=== PATIENT | female | born 1940 | race American Indian/Alaskan Native ===

== ENCOUNTER 2019-03-03 14:33 | Observation (INO) | payer MEDICARE ==
--- NOTE | 2019-03-03 14:59 | Emergency Department Report ---
ED Altered Mental Status HPI - General Stated Complaint: AMS Time Seen by Provider: 03/03/19 14:46 Source: patient, EMS Mode of arrival: Stretcher Limitations: No Limitations - History of Present Illness Initial Comments: 78-year-old female brought in by EMS with a past medical history of hypertension and elevated cholesterol with alteration in mental status. Daughter is also at the bedside. Apparently patient was eating and then she stopped responding to her daughter verbally. Daughter states she was not following commands and was unresponsive. Daughter thinks she might have had some right facial droop. Upon EMS arrival patient still was not speaking. Once they got her into the ambulance she started to speak and follow commands again. EMS reports Accu-Chek of 113 and the negative stroke screening exam. Upon arrival to the hospital daughter confirms that patient is at her baseline mental status. Patient complains only of mild lower back pain. She is alert and oriented 3. She is following commands. She does take an aspirin daily. PMD is Dr. Chou as sociated with Dr. Tanya Almeida's office - Related Data Allergies Allergy/AdvReac Type Severity Reaction Status Date / Time No Known Allergies Allergy Unverified 03/03/19 15:09 ED Review of Systems ROS: Stated complaint: AMS Other details as noted in HPI Comment: All other systems reviewed and negative ED Physical Exam - Other Other exam information: Gen.: No acute distress Head: Atraumatic Eyes: Normal appearance, extraocular movements intact, pupils equal reactive to light ENT: Moist mucous membranes Neck: Normal appearance, no posterior midline tenderness, no meningismus Chest: Clear to auscultation bilaterally Cardiovascular: Regular rate and rhythm Abdomen: Normal appearance, soft, nontender, no rebound or guarding, normal bowel sounds Back: Normal appearance, nontender Extremity: Full range of motion, normal appearance Neuro: Alert oriented 3, clear speech, no focal motor or sensory deficit Psychiatric: Appropriate Skin: No rash - Assessment Assessment Interval: Baseline - Level of Consciousness 1a. Level of Consciousness: alert/keenly responsive - LOC Questions 1b. LOC Questions: answers both correctly - LOC Command 1c. LOC Commands: performs tasks correctly - Best Gaze 2. Best Gaze: normal - Visual 3. Visual: no visual loss - Facial Palsy 4. Facial Palsy: normal symmetrical movement - Motor Arm 5a. Motor Arm Left: no drift 5b. Motor Arm Right: no drift - Motor Leg 6a. Motor Leg Left: no drift 6b. Motor Leg Right: no drift - Limb Ataxia 7. Limb Ataxia: absent - Sensory 8. Sensory: normal - Best Language 9. Best Language: no aphasia - Dysarthria 10. Dysarthria: normal - Extinction and Inattention 11. Extinction/Inattention: no abnormality - Scoring Total Score: 0 Stroke Severity: No Stroke Symptoms ED Course Vital Signs 03/03/19 03/03/19 15:01 15:07 Temperature 98.2 F Pulse Rate 61 60 Respiratory 16 16 Rate Blood Pressure 129/60 [Left] O2 Sat by Pulse 100 98 Oximetry - Lab Data Result diagrams: 03/03/19 15:07 03/03/19 15:07 Lab Results 03/03/19 03/03/19 03/03/19 Range/Units 15:07 15:07 15:07 WBC 4.0 L (4.5-11.0) K/mm3 RBC 3.28 L (3.65-5.03) M/mm3 Hgb 11.3 (10.1-14.3) gm/dl Hct 32.9 (30.3-42.9) % MCV 100 H (79-97) fl MCH 34 H (28-32) pg MCHC 34 (30-34) % RDW 13.2 (13.2-15.2) % Plt Count 213 (140-440) K/mm3 Lymph % (Auto) 24.1 (13.4-35.0) % [place] % (Auto) 7.7 H (0.0-7.3) % Eos % (Auto) 0.2 (0.0-4.3) % Baso % (Auto) 0.5 (0.0-1.8) % Lymph # 1.0 L (1.2-5.4) K/mm3 [place] # 0.3 (0.0-0.8) K/mm3 Eos # 0.0 (0.0-0.4) K/mm3 Baso # 0.0 (0.0-0.1) K/mm3 Seg Neutrophils % 67.5 (40.0-70.0) % Seg Neutrophils # 2.7 (1.8-7.7) K/mm3 PT 14.3 (12.2-14.9) Sec. INR 1.14 H (0.87-1.13) APTT 23.5 L (24.2-36.6) Sec. Sodium 141 (137-145) mmol/L Potassium 3.8 (3.6-5.0) mmol/L Chloride 105.1 (98-107) mmol/L Carbon Dioxide 21 L (22-30) mmol/L Anion Gap 19 mmol/L BUN 21 H (7-17) mg/dL Creatinine 1.2 (0.7-1.2) mg/dL Estimated GFR 52 ml/min BUN/Creatinine Ratio 18 % Glucose 123 H (65-100) mg/dL Calcium 9.5 (8.4-10.2) mg/dL Magnesium (1.7-2.3) mg/dL Total Bilirubin 0.80 (0.1-1.2) mg/dL AST 14 (5-40) units/L ALT 7 (7-56) units/L Alkaline Phosphatase 92 (35-129) units/L Total Protein 6.8 (6.3-8.2) g/dL Albumin 3.8 L (3.9-5) g/dL Albumin/Globulin Ratio 1.3 % TSH (0.270-4.200) mlU/mL Free T4 (0.76-1.46) ng/dL Plasma/Serum Alcohol (0-0.07) % 03/03/19 03/03/19 03/03/19 Range/Units 15:07 15:07 15:07 WBC (4.5-11.0) K/mm3 RBC (3.65-5.03) M/mm3 Hgb (10.1-14.3) gm/dl Hct (30.3-42.9) % MCV (79-97) fl MCH (28-32) pg MCHC (30-34) % RDW (13.2-15.2) % Plt Count (140-440) K/mm3 Lymph % (Auto) (13.4-35.0) % [place] % (Auto) (0.0-7.3) % Eos % (Auto) (0.0-4.3) % Baso % (Auto) (0.0-1.8) % Lymph # (1.2-5.4) K/mm3 [place] # (0.0-0.8) K/mm3 Eos # (0.0-0.4) K/mm3 Baso # (0.0-0.1) K/mm3 Seg Neutrophils % (40.0-70.0) % Seg Neutrophils # (1.8-7.7) K/mm3 PT (12.2-14.9) Sec. INR (0.87-1.13) APTT (24.2-36.6) Sec. Sodium (137-145) mmol/L Potassium (3.6-5.0) mmol/L Chloride (98-107) mmol/L Carbon Dioxide (22-30) mmol/L Anion Gap mmol/L BUN (7-17) mg/dL Creatinine (0.7-1.2) mg/dL Estimated GFR ml/min BUN/Creatinine Ratio % Glucose (65-100) mg/dL Calcium (8.4-10.2) mg/dL Magnesium 1.90 (1.7-2.3) mg/dL Total Bilirubin (0.1-1.2) mg/dL AST (5-40) units/L ALT (7-56) units/L Alkaline Phosphatase (35-129) units/L Total Protein (6.3-8.2) g/dL Albumin (3.9-5) g/dL Albumin/Globulin Ratio % TSH 1.150 (0.270-4.200) mlU/mL Free T4 1.61 H (0.76-1.46) ng/dL Plasma/Serum Alcohol < 0.01 (0-0.07) % - EKG Data -: EKG Interpreted by Pr EKG shows normal: sinus rhythm, axis (qrs -13), ST-T waves (no stemi) Rate: normal (60) When compared to previous EKG there are: previous EKG unavailable - Radiology Data Radiology results: report reviewed CT HEAD WITHOUT CONTRAST HISTORY: Altered Mental Status. TECHNIQUE: Axial collins ging performed from the skull apex through the skull base without the use of contrast. All CT scans at this location are performed using CT dose reduction for ALARA by means of automated exposure control. COMPARISON: None FINDINGS: Parenchyma: No acute intracranial hemorrhage or parenchymal abnormality.. Mild hypoattenuation throughout the white matter is noted and consistent with chronic microvascular ischemic disease. Ventricles: There is mild diffuse brain atrophy with commensurate ventricular enlargement which is likely age appropriate. Soft tissues: Soft tissues including the orbits appear normal. Bones: No acute osseous abnormality. Sinuses: Sinuses and mastoid air cells are clear. IMP RESSION: No acute abnormality. - Medical Decision Making plan to admit pt to hospital for transient alteration in mental status at baseline upon arrival ed workup did not identify cause thyroid panel results and urine collection pending at dispo asa ordered - Differential Diagnosis TIA, encephalopathy, arrhythmia, seizure Critical Care Time: No Critical care attestation.: If time is entered above; I have spent that time in minutes in the direct care of this critically ill patient, excluding procedure time. ED Disposition Clinical Impression: Transient alteration of awareness Disposition: DC-09 OP ADMIT IP TO THIS HOSP Is pt being admited?: Yes Does the pt Need Aspirin: Yes Condition: Stable Referrals: JADEN CHOU PA [Primary Care Provider] - 3-5 Days Time of Disposition: 16:02 (Dr pretty/hosp)
[2019-03-03 15:30] LABS: Basophils % (Auto) 0.5 % (0.0-1.8); Eosinophils % (Auto) 0.2 % (0.0-4.3); Hematocrit 32.9 % (30.3-42.9); Hemoglobin 11.3 gm/dl (10.1-14.3); Lymphocytes % (Auto) 24.1 % (13.4-35.0); Mean Corpuscular HGB Conc 34 % (30-34); Mean Corpuscular Volume 100 fl (79-97); Monocytes # (Auto) 0.3 K/mm3 (0.0-0.8); Monocytes % (Auto) 7.7 % (0.0-7.3); Platelet Count 213 K/mm3 (140-440); Red Blood Count 3.28 M/mm3 (3.65-5.03); Red Cell Distribution Width 13.2 % (13.2-15.2)
--- NOTE | 2019-03-03 15:39 | Cat Scan Report ---
CT HEAD WITHOUT CONTRAST HISTORY: Altered Mental Status. TECHNIQUE: Axial imaging performed from the skull apex through the skull base without the use of con trast. All CT scans at this location are performed using CT dose reduction for ALARA by means of aut omated exposure control. COMPARISON: None FINDINGS: Parenchyma: No acute intracranial hemorrhage or parenchymal abnormality.. Mild hypoattenuation thro ughout the white matter is noted and consistent with chronic microvascular ischemic disease. Ventricles: There is mild diffuse brain atrophy with commensurate ventricular enlargement which is l ikely age appropriate. Soft tissues: Soft tissues including the orbits appear normal. Bones: No acute osseous abnormality. Sinuses: Sinuses and mastoid air cells are clear. IMPRESSION: No acute abnormality. Signer Name: Kem Villegas Jr, MD Signed: 03/03/2019 3:35 PM Workstation Name: [id number]
[2019-03-03 15:45] LABS: INR 1.14 (0.87-1.13)
[2019-03-03 15:46] LABS: Partial Thromboplastin Time 23.5 Sec. (24.2-36.6)
[2019-03-03] MEDS ORDERED: ASPIRIN PO ONE (15:51)
[2019-03-03 15:58] LABS: Albumin 3.8 g/dL (3.9-5); Calcium 9.5 mg/dL (8.4-10.2)
[2019-03-03 16:05] LABS: Free T4 (Free Thyroxine) 1.61 ng/dL (0.76-1.46)
[2019-03-03] MEDS ORDERED: REGLAN PO PRN (16:05)
[2019-03-03] MEDS ORDERED: SODIUM CHLORIDE FLUSH SYRINGE 10 ML IV PRN (16:05)
[2019-03-03] MEDS ORDERED: PHENERGAN PR PRN (16:05)
[2019-03-03] MEDS ORDERED: MILK OF MAGNESIA PO PRN (16:05)
[2019-03-03] MEDS ORDERED: ZOFRAN IV PRN (16:05)
[2019-03-03] MEDS ORDERED: DULCOLAX PR PRN (16:05)
[2019-03-03] MEDS ORDERED: TYLENOL PO PRN (16:05)
--- NOTE | 2019-03-03 16:05 | History and Physical Report ---
History of Present Illness Chief complaint: She could not talk History of present illness: 78 YO Female with HTN, HLD, Dementia presents to ED for evaluation. Pt is confused and provides limited history. Pt daughter is at bedside and provides history. As per daughter, the patient was in her usual state of health and was eating her meal. Pt daughter reports that the patient stopped speaking, and experienced right sided facial droop and was unable to follow commands. EMS was notified, and upon arrival the patient was found to have a neurologic deficit. A code stroke was called and the patient was transported to [facility]. Pt seen and evaluated in ED and was found to have symptoms consistent with CVA. Pt is outside therapeutic window for TPA. Pt admitted to telemetry and initiated on CVA protocol. No reports of fever, chills, CP, Palpitations, NVD, Trauma, BRBPR, Unintentional weight loss, night sweats, or recent ill contacts. No prior admission for review. All listed medication reconciled at time of admission. Past History Past Medical History: hypertension, hyperlipidemia, other (Dementia) Past Surgical History: No surgical history, Other (Reviewed) Social history: single. denies: smoking, alcohol abuse, prescription drug abuse Family history: hypertension Medications and Allergies Allergies Allergy/AdvReac Type Severity Reaction Status Date / Time No Known Allergies Allergy Unverified 03/03/19 15:09 Review of Systems ROS unobtainable: due to mental status Exam - Constitutional Vitals: Temp Pulse Resp BP Pulse Ox 98.2 F 60 16 129/60 98 03/03/19 15:01 03/03/19 15:07 03/03/19 15:07 03/03/19 15:07 03/03/19 15:07 General appearance: Present: no acute distress, well-nourished - EENT Eyes: Present: PERRL ENT: hearing intact, clear oral mucosa - Neck Neck: Present: supple, normal ROM - Respiratory Respiratory effort: normal Respiratory: bilateral: CTA - Cardiovascular Heart Sounds: Present: S1 & S2. Absent: rub, click - Extremities Extremities: pulses symmetrical, No edema Peripheral Pulses: within normal limits - Abdominal General gastrointestinal: Present: soft, non-tender, non-distended, normal bowel sounds Female genitourinary: Present: normal - Integumentary Integumentary: Present: clear, warm, dry - Musculoskeletal Musculoskeletal: generalized weakness - Psychiatric Psychiatric: no appropriate mood/affect, no intact judgment & insight, no memory intact - Neurologic Neurologic: CNII-XII intact, no focal deficits, moves all extremities, no gait normal Results - Labs CBC & Chem 7: 03/03/19 15:07 03/03/19 15:07 Labs: Abnormal lab results 03/03/19 03/03/19 03/03/19 Range/Units 15:07 15:07 15:07 WBC 4.0 L (4.5-11.0) K/mm3 RBC 3.28 L (3.65-5.03) M/mm3 MCV 100 H (79-97) fl MCH 34 H (28-32) pg [place] % (Auto) 7.7 H (0.0-7.3) % Lymph # 1.0 L (1.2-5.4) K/mm3 INR 1.14 H (0.87-1.13) APTT 23.5 L (24.2-36.6) Sec. Carbon Dioxide 21 L (22-30) mmol/L BUN 21 H (7-17) mg/dL Glucose 123 H (65-100) mg/dL Albumin 3.8 L (3.9-5) g/dL Assessment and Plan - Patient Problems (1) CVA (cerebral vascular accident) Current Visit: Yes Status: Acute Qualifiers: Laterality of affected vessel: unspecified Plan to address problem: CVA Protocol: Admit to Telemetry, CT Head, Echo, Carotid doppler, antiplatelet therapy, PT/OT/Speech Therapy, Lipid panel, Statin therapy, (2) HTN (hypertension) Current Visit: Yes Status: Acute Qualifiers: Hypertension type: essential hypertension Qualified Code(s): I10 - Essential (primary) hypertension Plan to address problem: Monitor BP q shift, supportive care. (3) HLD (hyperlipidemia) Current Visit: Yes Status: Acute Qualifiers: Hyperlipidemia type: mixed hyperlipidemia Qualified Code(s): E78.2 - Mixed hyperlipidemia Plan to address problem: Statin therapy, (4) Advance care planning Current Visit: Yes Status: Acute Plan to address problem: 30 minutes dedicated to care planning. Discussed Prognosis, Dementia progression, End of life care. (5) DVT prophylaxis Current Visit: Yes Status: Acute Plan to address problem: SCD to BLE while in bed, supportive care.
--- NOTE | 2019-03-03 17:33 | Vascular Lab Report ---
Duplex carotid sonography with spectral analysis Indication: stroke Mild carotid atherosclerotic changes are seen. Tortuous vessels are noted bilaterally. In the right internal carotid artery no significant velocity elevations are seen to suggest a hemodyn amically-significant stenosis. Peak systolic velocity of the right ICA is 108 cm/s. In the left internal carotid artery no significant velocity elevations are seen to suggest a hemodyna mically-significant stenosis. Peak systolic velocity of the left ICA is 84 cm/s. Right ICA/CCA ratio: 1.54 Left ICA/CCA ratio: 1.17 Vertebral flow is antegrade bilaterally. Impression: No evidence of hemodynamically-significant stenosis by NASCET-type criteria. . Signer Name: Regulo Mckenzie MD Signed: 03/03/2019 5:29 PM Workstation Name: [id number]
[2019-03-03] MEDS ORDERED: ASPIRIN ONE (17:54)
--- NOTE | 2019-03-03 18:40 | Consultation ---
History of Present Illness Consult date: 03/03/19 Chief complaint: right facial droop, unresponsive History of present illness: This is an 78 YO F who presented to the ED with a spell where she was slumped over and not responding. No recent illness. Had been on donepezil which she was not tolerating but has been off for 3 weeks. Thought to have a right facial droop. All symptoms now resolved. Past History Past Medical History: hypertension, hyperlipidemia, other (Dementia) Past Surgical History: No surgical history, Other (Reviewed) Social history: single. denies: smoking, alcohol abuse, prescription drug abuse Family history: hypertension Medications and Allergies Allergies Allergy/AdvReac Type Severity Reaction Status Date / Time No Known Allergies Allergy Unverified 03/03/19 15:09 Active Meds: Active Medications Acetaminophen (Tylenol) 650 mg PO Q4H PRN PRN Reason: Pain, Mild (1-3) Aspirin (Aspirin) 325 mg PO QDAY APRIL Atorvastatin Calcium (Lipitor) 40 mg PO QHS APRIL Bisacodyl (Dulcolax) 10 mg ND QDAY PRN PRN Reason: Constipation Magnesium Hydroxide (Milk Of Magnesia) 30 ml PO Q4H PRN PRN Reason: Constipation Metoclopramide HCl (Reglan) 10 mg PO Q6H PRN PRN Reason: Nausea And Vomiting Ondansetron HCl (Zofran) 4 mg IV Q8H PRN PRN Reason: Nausea And Vomiting Promethazine HCl (Phenergan) 25 mg ND Q6H PRN PRN Reason: Nausea And Vomiting Sodium Chloride (Sodium Chloride Flush Syringe 10 Ml) 10 ml IV PRN PRN PRN Reason: LINE FLUSH Review of Systems ROS unobtainable: due to mental status (denied) Physical Examination - Vital Signs Vital Signs: Vital Signs Temp Pulse Resp Pulse Ox 98.2 F 61 16 100 03/03/19 15:01 03/03/19 15:01 03/03/19 15:01 03/03/19 15:01 - Constitutional General appearance: comfortable - EENT EENT: Present: mucous membranes moist - Respiratory Respiratory: Present: lungs clear, normal breath sounds - Cardiovascular Cardiovascular: Present: regular rate Extremities: Present: no peripheral edema bilatateraly - Gastrointestinal Gastrointestinal: Present: normoactive bowel sounds - Integumentary Integumentary: Present: normal - Neurologic Cranial nerve examination: PERRL, EOMI, V1/V2/V3 grossly intact, face symmetric, tongue midline Speech examination: intact Sensorimotor examination: intact Detailed motor examination: grossly full strength in Reflexes: 1+: ankle, bicep, knee, tricep - Psychiatric Psychiatric: Present: mood/affect appropriate Results - Laboratory Findings CBC and BMP: 03/03/19 15:07 03/03/19 15:07 Abnormal Lab Findings: Abnormal Labs 03/03/19 03/03/19 03/03/19 15:07 15:07 15:07 WBC 4.0 L RBC 3.28 L MCV 100 H MCH 34 H [place] % (Auto) 7.7 H Lymph # 1.0 L INR 1.14 H APTT 23.5 L Carbon Dioxide 21 L BUN 21 H Glucose 123 H POC Glucose Albumin 3.8 L Free T4 03/03/19 03/03/19 15:07 18:23 WBC RBC MCV MCH [place] % (Auto) Lymph # INR APTT Carbon Dioxide BUN Glucose POC Glucose 126 H Albumin Free T4 1.61 H - Diagnostic Findings Additional findings: CT head WNL carotids ok Assessment and Plan This is an 78 YO F with ? TIA Recommend: MRI/A, echo PT/OT/ST aspirin and statin A1c and LDL Continue care for all medical issues as you are doing Permissive htn x 24 hours
[2019-03-03 19:08] LABS: Amphetamine Screen,Urine PRESUMPTIVE NEGATIVE; Benzodiazepines Screen,Urine PRESUMPTIVE NEGATIVE; Cannabinoid Screen,Urine PRESUMPTIVE NEGATIVE; Cocaine Screen,Urine PRESUMPTIVE NEGATIVE; Methadone Screen,Urine PRESUMPTIVE NEGATIVE; Opiate Screen,Urine PRESUMPTIVE NEGATIVE
[2019-03-03 19:15] LABS: Bacteria,Urine 1+ /HPF (Negative); Bilirubin,Urine NEG (Negative); Blood,Urine NEG (Negative); Color,Urine Yellow (Yellow); Mucus,Urine FEW /HPF; RBC,Urine < 1.0 /HPF (0.0-6.0); Urobilinogen,Urine < 2.0 mg/dL (<2.0)
[2019-03-04] MEDS ORDERED: NON-FORMULARY (Metoprolol 50 MG) PO SCH (01:19)
[2019-03-04] MEDS ORDERED: NON-FORMULARY (Levothyroxine 75 MCG) PO SCH (01:19)
[2019-03-04] MEDS ORDERED: NON-FORMULARY (Atorvastatin 10 MG) PO SCH (01:20)
[2019-03-04] MEDS: LOPRESSOR PO SCH ×2 (02:49→10:53)
[2019-03-04] MEDS ORDERED: SYNTHROID PO SCH (06:00)
[2019-03-04 08:23] LABS: Chol/HDL Ratio 3.11 %
[2019-03-04 08:31] VITALS: BP 141/70
[2019-03-04] MEDS ORDERED: NON-FORMULARY (Losartan Potassium 100 MG) PO SCH (10:00)
[2019-03-04] MEDS ORDERED: NON-FORMULARY (Amlodipine Besylate 5 MG) PO SCH (10:00)
[2019-03-04] MEDS ORDERED: COZAAR PO SCH (10:00)
[2019-03-04] MEDS ORDERED: NORVASC PO SCH (10:00)
[2019-03-04] MEDS ORDERED: ASPIRIN PO SCH (10:00)
--- NOTE | 2019-03-04 13:39 | Magnetic Resonance Report ---
MRI BRAIN WITHOUT CONTRAST INDICATION / CLINICAL INFORMATION: TIA. Right facial droop. Confusion. TECHNIQUE: Multisequence, multiplanar images were obtained. COMPARISON: None available. FINDINGS: CEREBRAL and CEREBELLAR HEMISPHERES: Moderate diffuse cortical volume loss and moderate chronic ische jillian changes in the white matter and aurelia are identified. No evidence of mass or mass effect. No midl ine shift. No acute hemorrhage. No diffusion restriction to suggest acute infarct. No extra-axial fluid collection. VENTRICLES: Normal in size and configuration for age. VISUALIZED ORBITS: No significant abnormality. VISUALIZED PARANASAL SINUSES: 1 cm mucous retention cyst versus polyp is noted in the left maxillary sinus. The remaining sinuses and mastoid air cells are adequately aerated. ADDITIONAL FINDINGS: None. IMPRESSION: Diffuse volume loss and chronic white matter changes which are likely appropriate for this person's a ge. No acute intracranial process. MRA HEAD WITHOUT CONTRAST HISTORY: TIA, right facial droop, confusion COMPARISON: None. TECHNIQUE: Routine MRA of the head is performed. 3-D/MIP reformats postprocessed. CONTRAST: None. FINDINGS: Intracranial vertebral arteries: No significant abnormality. Basilar artery: No significant abnormality. Posterior cerebral arteries: No significant abnormality. Intracranial internal carotid arteries: No significant abnormality. Anterior cerebral arteries: No significant abnormality. Middle cerebral arteries: No significant abnormality. Additional findings: Moderate size bilateral posterior communicating arteries are identified. IMPRESSION: Unremarkable MRA head. No evidence for large vessel occlusion, stenosis or aneurysm. Signer Name: Kem Villegas Jr, MD Signed: 03/04/2019 1:34 PM Workstation Name: [id number]
--- NOTE | 2019-03-04 17:21 | Discharge Summary ---
Providers - Providers Date of Admission: 03/03/19 16:05 Date of discharge: 03/04/19 Attending physician: ELIN LIVINGSTON 03/03/19 16:06 Occupational Therapy Evaluate and Treat [CONS] Routine Comment: Reason For Exam: Neuro deficits Physical Therapy Evaluation and Treat [CONS] Routine Comment: Reason For Exam: Neuro deficits 03/03/19 17:27 Consult to Physician [CONS] Routine Comment: Consulting Provider: ANGELINA HERNANDEZ Physician Instructions: Reason For Exam: cva Primary care physician: JADEN CHOU Hospitalization Condition: Good Pertinent studies: MR out of head remarkable CT scan of his unremarkable echocardiogram ejection fraction 60% EKG unremarkable cardiac asthma enzymes negative Hospital course: patient 78-year-old female presented with what appeared to be a TIA near single- purpose so possible right facial droop. Resolved almost immediately presented to ED for workout. Patient had extensive workup negative with CT scan head MRI echocardiogm ejection fraction 60%. The only workup that was abnormal was patient was dehydrated. Recommend hydration as we've done and encourage PO fluids. Follow primary care physician. Patient stable for discharge home with family. This is been discuss with son and a bedside.would recommend taken up daily aspirin baby aspirin however cholesterol and everything was normal. Disposition: - TO HOME OR SELFCARE - Discharge Diagnoses (1) HTN (hypertension) Status: Acute Qualifiers: Hypertension type: essential hypertension Qualified Code(s): I10 - Essential (primary) hypertension (2) Transient alteration of awareness Status: Acute Core Measure Documentation - Palliative Care Palliative Care/ Comfort Measures: Not Applicable - Core Measures Any of the following diagnoses?: none Exam - Constitutional Vitals: Temp Pulse Resp BP Pulse Ox 97.4 F L 68 18 141/70 99 03/04/19 07:50 03/04/19 12:00 03/04/19 08:15 03/04/19 10:53 03/04/19 08:15 General appearance: Present: no acute distress, well-nourished - EENT Eyes: Present: PERRL ENT: hearing intact, clear oral mucosa - Neck Neck: Present: supple, normal ROM - Respiratory Respiratory effort: normal Respiratory: bilateral: CTA - Cardiovascular Heart Sounds: Present: S1 & S2. Absent: rub, click - Extremities Extremities: pulses symmetrical, No edema Peripheral Pulses: within normal limits - Abdominal General gastrointestinal: Present: soft, non-tender, non-distended, normal bowel sounds Female genitourinary: Present: normal - Integumentary Integumentary: Present: clear, warm, dry - Musculoskeletal Musculoskeletal: gait normal, strength equal bilaterally - Psychiatric Psychiatric: appropriate mood/affect, intact judgment & insight - Neurologic Neurologic: CNII-XII intact, moves all extremities Plan Activity: fall precautions Weight Bearing Status: Full Weight Bearing Diet: low salt Follow up with: JADEN CHOU PA [Primary Care Provider] - 3-5 Days
--- NOTE | 2019-03-04 17:54 | Progress Note ---
Assessment and Plan This is an 78 YO F with ? TIA Recommend: MRI Brain nothing acute Change aspirin to Plavix- daughter reports compliance with aspirin at home, statin Pt with U cx pending Follow up with PCP outpatient POC discussed with pt and daughter at bedside. Subjective Date of service: 03/04/19 Interval history: At baseline. No new complaints. Objective - Vital Sign Vital Signs - 12hr 03/04/19 03/04/19 03/04/19 07:50 08:15 10:53 Temperature 97.4 F L Pulse Rate 57 L 57 L Pulse Rate [ 61 Left Radial] Pulse Rate [ 61 Right Radial] Respiratory 18 18 Rate Blood Pressure 141/70 141/70 O2 Sat by Pulse 99 99 Oximetry 03/04/19 12:00 Temperature Pulse Rate 68 Pulse Rate [ Left Radial] Pulse Rate [ Right Radial] Respiratory Rate Blood Pressure O2 Sat by Pulse Oximetry - General Apperance Constitutional: comfortable - EENT EENT: mucous membranes moist - Respiratory Respiratory: lungs clear - Cardiovascular Cardiovascular: regular rate - Gastrointestinal Gastrointestinal: normoactive bowel sounds - Neurologic Cranial nerve examination: PERRL, face symmetric, tongue midline Detailed motor examination: grossly full strength in - Laboratory Findings CBC and BMP: 03/03/19 15:07 03/03/19 15:07 Abnormal Lab Findings: Abnormal Labs 03/03/19 03/03/19 03/03/19 15:07 15:07 15:07 WBC 4.0 L RBC 3.28 L MCV 100 H MCH 34 H [place] % (Auto) 7.7 H Lymph # 1.0 L INR 1.14 H APTT 23.5 L Carbon Dioxide 21 L BUN 21 H Glucose 123 H POC Glucose Albumin 3.8 L Free T4 03/03/19 03/03/19 15:07 18:23 WBC RBC MCV MCH [place] % (Auto) Lymph # INR APTT Carbon Dioxide BUN Glucose POC Glucose 126 H Albumin Free T4 1.61 H - Diagnostic Findings Additional findings: MRI Brain- nothing acute
[2019-03-05] MEDS ORDERED: PLAVIX PO SCH (10:00)
== END 2019-03-04 19:00 | disposition home or self-care (01) ==
LOC: ED 14:33 → 4A 16:05
PROVIDERS: ADMIT Internal Medicine; ATTEND Internal Medicine
DX: I63.9 Cerebral infarction, unspecified (principal); I10 Essential (primary) hypertension; E78.5 Hyperlipidemia, unspecified; F03.90 Unspecified dementia, unspecified severity, without behavioral disturbance, psychotic disturbance, mood disturbance, and anxiety
CPT/HCPCS: 36415; 70450; 70544; 70551; 80053; 80061; 80307; 81001; 82962; 83735; 84439; 84443; 85025; 85610; 85730; 93005; 93010; 93306; 93880; 97116; 97161; 97165; 99284; A9270; G0378; 80320; G0480